=== PATIENT | male | born 1940 | race Caucasian/White ===

== ENCOUNTER 2018-08-20 07:25 | Emergency (ER) | payer MEDICARE ==
[2018-08-20] MEDS ORDERED: methylPREDNISolone 125 MG* 2 ML VIAL IV ONE (08:18)
[2018-08-20] MEDS ORDERED: diPHENhydraMINE IV* 50 MG/ML 1 ml VIAL (BENADRYL) IV ONE (08:18)
[2018-08-20] MEDS ORDERED: Famotidine IV* 10 MG/ML 2 ML (20 mg) IV SLOW PU ONE (08:19)
[2018-08-20] MEDS ORDERED: NS 0.9% 1000 ML** 1,000 ML IV SCH (08:30)
--- NOTE | 2018-08-20 08:32 | UC ---
General HPI - HPI Summary HPI Summary: WOKE UP THIS MORNING WITH A SORE/SWOLLEN TONGUE. STATES IT LOOKS DISCOLORED. STATES HIS RIGHT UPPER EYELID IS ALSO SLIGHTLY SWOLLEN AND HE HAS A RASH ON HIS CHEST. DENIES ANY RESPIRATORY DIFFICULTY. NO FEVER. NO NAUSEA/VOMITING. NO KNOWN ALLERGIES. SPEECH IS SLIGHTLY MUFFLED DUE TO THE SIZE OF HIS TONGUE. STATES HE TOOK 200 MG OF DOXYCYCLINE LAST NIGHT FOR TICK BITE. HIS ALSO STATES THAT SHE PUT BRAND-NEW, OUT OF THE PACKAGE SHEETS ON THE BED LAST NIGHT. NO OTHER NEW EXPOSURES HE CAN IDENTIFY. - History of Current Complaint Chief Complaint: UCRespiratory Stated Complaint: MOUTH COMPLAINT Time Seen by Provider: 08/20/18 07:43 Hx Obtained From: Patient Onset/Duration: Sudden Onset, Lasting Hours, Still Present Timing: Constant Onset Severity: Moderate Current Severity: Moderate Pain Intensity: 6 Associated Signs & Symptoms: Positive: Recent Medication Changes. Negative: Abdominal Pain, Confusion, Cough, Chest Pain, Dizziness, Fever, Headache, Nausea , SOB, Trauma, Vomiting - Allergy/Home Medications Allergies/Adverse Reactions: Allergies Allergy/AdvReac Type Severity Reaction Status Date / Time No Known Allergies Allergy Verified 08/20/18 07:41 Home Medications: Home Medications Diclofenac 1% GEL (NF) [Voltaren 1% GEL (NF)] 1 applic TOPICAL DAILY PRN [History Confirmed 08/20/18] Ibuprofen 600 mg PO ONCE PRN 08/20/18 [History Confirmed 08/20/18] PMH/Surg Hx/FS Hx/Imm Hx Endocrine History: Dyslipidemia Psychological History: Depression - Surgical History Surgical History: Yes Surgery Procedure, Year, and Place: APPENDIX A CHILD. TONSILS A CHILD - Family History Known Family History: Positive: Non-Contributory - Social History Alcohol Use: Rare Substance Use Type: None Smoking Status (MU): Never Smoked Tobacco Review of Systems All Other Systems Reviewed And Are Negative: Yes Constitutional: Positive: Negative Eyes: Positive: Other - RIGHT EYELID EDEMA. Negative: Blurred Vision, Eye Redness ENT: Positive: Other - TONGUE/LIP SWELLING Respiratory: Positive: Negative Cardiovascular: Positive: Negative Gastrointestinal: Positive: Negative Musculoskeletal: Positive: Negative Neurological: Positive: Negative Physical Exam Triage Information Reviewed: Yes Appearance: Well-Appearing, No Pain Distress, Well-Nourished Vital Signs: Initial Vital Signs Temp 97.7 F 08/20/18 07:33 Pulse 90 08/20/18 07:33 Resp 18 08/20/18 07:33 BP 155/95 08/20/18 07:33 Pulse Ox 96 08/20/18 07:33 Vital Signs Reviewed: Yes Eyes: Positive: Conjunctiva Clear, Other: - RIGHT UPPER EYELID EDEMA. LEYLA OCASIO. ENT: Positive: Hearing grossly normal, Pharynx normal, Uvula midline - NO EDEMA , Other - TONGUE IS SIGNIFICANTLY SWOLLEN AND ECCHYMOTIC. SLIGHT EDEMA CORNER OF MOUTH RIGHT SIDE. SPEECH IS MUFFLED DUE TO ENLARGED TONGUE. Negative: Pharyngeal erythema, Nasal congestion Neck: Positive: Supple, Nontender, No Lymphadenopathy Respiratory Exam: Normal Cardiovascular Exam: Normal Abdomen Description: Positive: Soft Musculoskeletal: Positive: No Edema Neurological: Positive: Alert, Muscle Tone Normal Psychological: Positive: Normal Response To Family, Age Appropriate Behavior Skin: Negative: Rashes Re-Evaluation - Re-Evaluation First Eval Re-Evaluation Time: 10:30 - TONGUE FEELS BETTER AFTER 125MG SOLUMEDROL, 40MG PEPCID AND 50MG DIPHENHYDRAMINE Change: Improved Second Eval Re-Evaluation Time: 11:35 - CONTINUED IMPROVEMENT IN TONGUE SWELLING. SPEECH IS CLEARER. READY FOR D/C Change: Improved Course/Dx - Course Course Of Treatment: PATIENT HAD IMPROVEMENT IN TONGUE SWELLING AND SUBSEQUENT IMPROVEMENT IN CLARITY OF SPEECH AFTER 1 L NORMAL SALINE, 125 MG SOLU-MEDROL, 50 MG BENADRYL, 40 MG PEPCID HERE IN THE UC. HE DOES HAVE SOME RIGHT UPPER EYELID EDEMA AND SLIGHT SWELLING IN THE RIGHT CORNER OF HIS MOUTH THAT HAS BEEN STABLE FOR THE DURATION OF HIS ENCOUNTER. THE RASH ON HIS CHEST IS UNCHANGED. GIVEN HIS OVERALL IMPROVEMENT IN SYMPTOMS HE IS MEDICALLY STABLE TO BE DISCHARGED HOME. WILL CONTINUE STEROIDS FOR THE NEXT 4 DAYS. HAVE ALSO ADVISED HE TAKE 50 MG BENADRYL AT NIGHT AND AN OTC FIRST-GENERATION ANTIHISTAMINE IN THE MORNING SUCH CLARITIN, ZYRTEC OR BEBE. HE'LL GO TO THE ER WITHOUT FAIL IF HE HAS ANY WORSENING OF HIS SYMPTOMS OR RESPIRATORY INVOLVEMENT. HAVE ADVISED HE STRIP THE BED AND WASH THE NEW SHEETS. 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 - Diagnoses Provider Diagnosis: Allergic reaction, Angioedema Discharge - Sign-Out/Discharge Documenting (check all that apply): Patient Departure All imaging exams completed and their final reports reviewed: No Studies - Discharge Plan Condition: Stable Disposition: HOME Prescriptions: predniSONE TAB* [Deltasone TAB*] 50 mg PO DAILY #4 tab Patient Education Materials: Angioedema (ED), General Allergic Reaction (ED) Referrals: Gautam Mclean MD [Primary Care Provider] - If Needed Additional Instructions: YOUR CONSTELLATION OF SYMPTOMS IS SUGGESTIVE OF AN ALLERGIC REACTION. UNCLEAR TO WHAT YOU ARE REACTING. CONSIDER DOXYCYCLINE VERSUS AN ALLERGEN IN THE NEW BED SHEETS THAT YOU USED. YOU FELT IMPROVED AFTER 125 MG SOLU-MEDROL, 50 MG BENADRYL, 40 MG PEPCID AND 1L FLUIDS HERE IN THE UC WITH IMPROVEMENT IN THE SWELLING OF YOUR TONGUE. CONTINUE PREDNISONE FOR THE NEXT 4 DAYS. AVOID HEAT AND HOT WATER THIS CAN WORSEN INFLAMMATORY SYMPTOMS. TAKE OTC ANTIHISTAMINE DAILY (CLARITIN (LORATADINE), ZYRTEC (CETIRIZINE) OR BEBE (FEXOFENADINE) IN THE MORNING, 50MG BENADRYL AT NIGHT) KEEP COOL, CLEAN AND DRY GO TO THE ED WITHOUT FAIL IF YOU DEVELOP ANY RESPIRATORY INVOLVEMENT, INCREASED TONGUE/LIP SWELLING, FEVER, NAUSEA/VOMITING OR ANY OTHER CONCERNING SYMPTOMS. IF YOU HAVE RECURRENT SYMPTOMS CONSIDER EVAL BY AN ASSEMBLER CARDS AND ANNOUNCEMENTS. [facility] Address: [facility] [address], [place] [address] [facility] [address] [place], [place] [address] [place], [place] [address] - Billing Disposition and Condition Condition: STABLE Disposition: Home
[2018-08-20 12:15] VITALS: BP 163/98
== END 2018-08-20 12:07 | disposition home or self-care (01) ==
LOC: UCEAST 07:25
DX: T78.3XXA Angioneurotic edema, initial encounter (principal); T78.40XA Allergy, unspecified, initial encounter; X58.XXXA Exposure to other specified factors, initial encounter
CPT/HCPCS: 96360; 96375; 96376; 99212; G0463; J1200; J2930

== ENCOUNTER 2019-01-06 18:28 | Observation (INO) | payer MEDICARE ==
[2019-01-06] MEDS ORDERED: NS 0.9% 1000 ML** 1,000 ML IV ONE ×2 (18:36→20:04)
--- NOTE | 2019-01-06 18:53 | ED ---
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 notes facial, arm, and leg numbness, mild facial weakness. no h/a, visual disturbance, slurred speech, facial droop, AMS, n/v, CP/SOB. no h/o CAD/DM/HTN. no h/o similar symptoms. remote h/o smoking. - History of Current Complaint Chief Complaint: EDNeurologicalDeficit Stated Complaint: NUMBNESS IN L ARM PER PT Time Seen by Provider: 01/06/19 18:41 Pain Intensity: 0 - Allergy/Home Medications Allergies/Adverse Reactions: Allergies Allergy/AdvReac Type Severity Reaction Status Date / Time No Known Allergies Allergy Verified 09/16/18 07:39 PMH/Surg Hx/FS Hx/Imm Hx Cardiovascular History: Denies: Hx Pacemaker/ICD Sensory History: Reports: Hx Hearing Aid Psychiatric History: Denies: Hx Panic Disorder - Surgical History Surgery Procedure, Year, and Place: APPENDIX A CHILD. TONSILS A CHILD Infectious Disease History: No Infectious Disease History: Reports: History Other Infectious Disease - herpes Denies: Traveled Outside the [place] in Last 30 Days - Family History Known Family History: Positive: Non-Contributory - Social History Alcohol Use: Rare Substance Use Type: Reports: None Smoking Status (MU): Never Smoked Tobacco Review of Systems Constitutional: Negative Negative: Fever Eyes: Negative ENT: Negative Cardiovascular: Negative Respiratory: Negative Gastrointestinal: Negative Skin: Negative Neurological: Other Negative: Headache Psychological: Normal Positive: Anxious All Other Systems Reviewed And Are Negative: Yes Physical Exam Triage Information Reviewed: Yes Vital Signs On Initial Exam: Initial Vitals Temp Pulse Resp BP Pulse Ox 97.3 F 83 16 00/00 100 01/06/19 18:32 01/06/19 18:32 01/06/19 18:32 01/06/19 18:32 01/06/19 18:32 Vital Signs Reviewed: Yes Appearance: Positive: Well-Appearing Skin: Positive: Warm Head/Face: Positive: Normal Head/Face Inspection ENT: Positive: Normal ENT inspection Neck: Positive: Supple. Negative: Nuchal Rigidity Respiratory/Lung Sounds: Positive: Clear to Auscultation Cardiovascular: Positive: Normal Abdomen Description: Positive: Nontender Musculoskeletal: Positive: Normal Neurological: Positive: Other - see NIHSS Psychiatric: Positive: Normal AVPU Assessment: Alert Procedures - Sedation Patient Received Moderate/Deep Sedation with Procedure: No Diagnostics - Vital Signs Vital Signs Temp Pulse Resp BP Pulse Ox 01/06/19 18:32 97.3 F 83 16 100 - Laboratory Result Diagrams: 01/07/19 05:26 01/07/19 05:26 Lab Statement: Any lab studies that have been ordered have been reviewed, and results considered in the medical decision making process. NIH Scale - NIH Scale Level of Consciousness: Alert/Keenly Responsive Ask Patient the Month and His/Her Age: Both Correct Ask Pt to Open/Close Eyes and Magnetometer Operator/Release Non-Paretic Hand: Both Correctly Best Gaze (Only Horizontal Eye Movement): Normal Visual Field Testing: No Visual Loss Facial Paresis-Pt to Smile & Close Eyes or Grimace Symmetry: Normal/Symmetrical Motor Function - Right Arm: No Drift-Holds 10 Seconds Motor Function - Left Arm: No Drift-Holds 10 Seconds Motor Function - Right Leg: No Drift-Holds 10 Seconds Motor Function - Left Leg: No Drift-Holds 10 Seconds Limb Ataxia-Must be out of Proportion to Weakness Present: Absent Sensory (Use Pinprick to Test Arms/Legs/Trunk/Face): Pinprick Less on Affected Best Language (Describe Picture, Name Items): No Aphasia Dysarthria (Read Several Words): Normal Extinction and Inattention: No Abnormality Total Score: 1 Course/Dx - Course Course Of Treatment: d/w teleneurology in [place] at 1855. will set up for consultation and call back shortly. - Diagnoses Provider Diagnoses: Paresthesia Discharge ED - Sign-Out/Discharge Documenting (check all that apply): Sign-Out Patient Signing out patient TO: Pedrito Mata - 1898 - Discharge Plan Condition: Stable Disposition: ADMITTED TO [facility] - Billing Disposition and Condition Condition: STABLE Disposition: Admitted to [facility] - Attestation Statements Document Initiated by Leland: No
[2019-01-06 19:08] LABS: Hematocrit 47 % (42-52); Hemoglobin 16.3 g/dL (14.0-18.0); Mean Corpuscular HGB Conc 35 g/dL (31-36); Mean Corpuscular Hemoglobin 31 pg (27-31); Mean Corpuscular Volume 89 fL (80-94); Mean Platelet Volume 8.7 fL (7.4-10.4); Platelet Count 262 10^3/uL (150-450); Red Blood Count 5.25 10^6 /uL (4.18-5.48); Red Cell Distribution Width 13 % (10-15); White Blood Count 16.4 10^3/uL (3.5-10.8)
[2019-01-06 19:19] LABS: INR 1.03 (0.82-1.09)
[2019-01-06 19:24] LABS: ALT 17 U/L (7-52); Albumin 4.2 g/dL (3.2-5.2); Albumin/Globulin Ratio 1.9 (1-3); Alkaline Phosphatase 61 U/L (34-104); BUN/Creatinine Ratio 16.5 (8-20); Blood Urea Nitrogen 18 mg/dL (6-24); CO2 Carbon Dioxide 25 mmol/L (22-32); Calcium 9.3 mg/dL (8.6-10.3); Chloride 104 mmol/L (101-111); Cholesterol 249 mg/dL; EGFR African American 79.4 (>60); EGFR Non-African American 65.6 (>60); Globulin 2.2 g/dL (2-4); Glucose 142 mg/dL (70-100); HDL Cholesterol 45.8 mg/dL; Sodium 137 mmol/L (135-145); Total Protein 6.4 g/dL (6.4-8.9); Triglycerides 455 mg/dL
[2019-01-06 19:28] LABS: Troponin I 0.01 ng/mL (<0.04)
[2019-01-06 19:29] LABS: Anion Gap 8 mmol/L (2-11)
[2019-01-06 19:39] LABS: LDL Cholesterol Direct 183 mg/dL
[2019-01-06] MEDS ORDERED: Aspirin TAB* 325 MG PO ONE (19:48)
[2019-01-06] MEDS ORDERED: Iohexol 350* (CONTRAST) 500 ML MDV IV ONE (19:52)
--- NOTE | 2019-01-06 19:57 | ED ---
Progress - Progress Note Progress Note: Pt was pending a neurology assessment by Dr. Chu from [facility] [place]. EKG at 19:56 shows 84 BPM, normal sinus rhythm with T wave inversions in lead III and aVF. T- wave inversions are new from 2009. At 19:48, Dr. Chu states that on assessment, pt has ataxia in left LE with the same intensity of symptoms. Recommends against tPA for minor neurological deficits; possible minor stroke. Recommends admission to [facility] to determine if stroke occurred and CTA of head and neck, and cardiac studies. Recommends pt be given aspirin 125 mg. At 19:52, Dr. Pichardo agrees to accept the pt to [facility] with a diagnosis of paresthesia. Sm tick noted to L flank, removed. Area of erythema around tick bite. patient allergic to doxy. hospitalist aware - EKG/XRAY/CT EKG: NSR - 84 BPM Comments: EKG at 19:56 shows 84 BPM, normal sinus rhythm with T wave inversions in le Course/Dx - Course Course Of Treatment: d/w teleneurology in [place] at 1855. will set up for consultation and call back shortly. - Diagnoses Provider Diagnoses: Paresthesia Discharge ED - Sign-Out/Discharge Documenting (check all that apply): Patient Departure - Admit - Discharge Plan Condition: Stable Disposition: ADMITTED TO [facility] Referrals: Gautam Mclean MD [Primary Care Provider] - - Billing Disposition and Condition Condition: STABLE Disposition: Admitted to [facility] - Attestation Statements Document Initiated by Leland: Yes Documenting Scribe: Megan Weinstein Provider For Whom Leland is Documenting (Include Credential): Pedrito Mata MD Scribe Attestation: Megan Peterson, scribed for Pedrito Mata MD on 01/06/19 at 2043. Scribe Documentation Reviewed: Yes Provider Attestation: The documentation as recorded by the Megan griffin accurately reflects the service I personally performed and the decisions made by , Pedrito Mata MD Status of Scribe Document: Viewed
[2019-01-06 20:06] LABS: ABS Basophils 0.1 10^3/ul (0-0.2); ABS Eosinophils 0.3 10^3/ul (0-0.6); ABS Lymphocytes 9.9 10^3/ul (1.0-4.8); ABS Monocytes 0.8 10^3/ul (0-0.8); ABS Neutrophils 5.3 10^3/ul (1.5-7.7); ABS Nucleated RBC 0.1 10^3/ul; Nucleated Red Blood Cells % 0.4
[2019-01-06] MEDS ORDERED: Clopidogrel TAB* 75 MG PO ONE (20:33)
[2019-01-06] MEDS ORDERED: Acetaminophen TAB* 325 MG PO PRN (20:34)
[2019-01-06] MEDS ORDERED: Atorvastatin* 80 MG TAB PO ONE (21:00)
[2019-01-06 21:44] LABS: TSH (Thyroid Stimulating Horm) 1.91 mcIU/mL (0.34-5.60)
[2019-01-06] MEDS ORDERED: hydrALAZINE IV* 20 MG/ML VIAL IV SLOW PU PRN (21:51)
[2019-01-06 22:26] LABS: Troponin I 0.01 ng/mL (<0.04)
--- NOTE | 2019-01-06 22:32 | HP ---
CC: Dr. Mclean * HISTORY AND PHYSICAL: DATE OF ADMISSION: 01/06/19 PROVIDER: Morris Cortes NP PRIMARY CARE PROVIDER: Dr. Mclean. ATTENDING PHYSICIAN WHILE IN THE HOSPITAL: Dr. Emeka Pichardo * (dictated by Morris Cortes NP). CHIEF COMPLAINT: Left-sided numbness, facial numbness, left arm numbness, left leg numbness. HISTORY OF PRESENT ILLNESS: Mr. Shook is a 78-year-old male with past medical history significant for hyperlipidemia for which he does not take any medications, who presented to the emergency room with complaints of sudden of left-sided facial, arm, and leg numbness that started at 6 p.m. The patient reports left-sided facial, hand, and arm numbness and slight left leg numbness that started at 6 p.m. this evening. He denied any slurred speech. Denied any weakness on the left side. Denied any dizziness or visual complaints. Due to these symptoms, the patient was brought to the emergency room for further evaluation. While in the emergency room, the patient was hypertensive with blood pressure of 177/110. Due to his left-sided numbness, Hospital Medicine was asked to evaluate the patient for admission. The patient denied any fevers, unintended weight loss, chest pain or edema, cough, hemoptysis, shortness of breath. Denies any nausea, vomiting, diarrhea, abdominal pain, hematuria, dysuria. He does report sensory deficit on the left arm, hand, left facial, and left leg. He does report his symptoms have improved since he has been in the emergency room, but continues to have some residual numbness in his left hand, forearm, and slight numbness in his face. He denies any visual complaints, difficulty swallowing, difficulty with his speech. Denies any arthralgias, myalgias, rashes, lesions, or psychosis or anxiety. PAST MEDICAL HISTORY: Significant for history of hyperlipidemia for which he does not take medications. PAST SURGICAL HISTORY: Appendectomy, tonsillectomy. HOME MEDICATIONS: Include: 1. Alpha-GPC supplement. 2. Calcium. 3. Magnesium. 4. Vitamin D. ALLERGIES: DOXYCYCLINE, causes facial swelling and tongue swelling. FAMILY HISTORY: Noncontributory. SOCIAL HISTORY: The patient reports he quit smoking 47 years ago. Prior to that, he smoked 10 to 15 years about a pack a day. Denies any alcohol or illicit drug use. He is . Surrogate decision maker in the event he is unable to make his own decision is his . He is a full code. REVIEW OF SYSTEMS: A 14-point review of systems was completed. All pertinent positives are mentioned in the HPI, otherwise were negative. PHYSICAL EXAMINATION GENERAL: At this time, Mr. Shook is resting on the stretcher in the emergency room. He is in no acute distress. Speech is clear. VITAL SIGNS: Blood pressure 177/110, heart rate is 80, respirations are 18, O2 saturation 98% on room air, temperature was 97.3. HEENT: Head is atraumatic, normocephalic. Eyes: EOMs are intact. Sclerae anicteric and not pale. Oral mucosa appeared to be moist. NECK: Supple. LUNGS: Clear to auscultation bilaterally. No wheezes, rales, or rhonchi. CARDIAC: S1, S2. Regular rate and rhythm. No murmurs, rubs, or gallops. ABDOMEN: Soft and nontender. Bowel sounds are present x4. EXTREMITIES: He is able to move all 4 extremities. There is no clubbing or cyanosis. Pedal pulses are +2 bilaterally. NEUROLOGIC: He is awake, alert, and oriented x3. Speech is clear. Thought process is intact. [id number] is intact. Hand news broadcaster are equal. Tongue is midline. Smile is equal. There is no facial asymmetry. Speech is clear. Heel -to- houser is intact. Push-pull is intact. There is no pronator drift. There is no leg drift. He does have decreased sensation in the left face, left arm, and sensation is equal in the lower legs. SKIN: He does have a tick that is intact to his left rib area with surrounding erythema. This was removed by the emergency room. DIAGNOSTIC STUDIES/LAB DATA: WBCs are 16.4, RBCs 5.25, hemoglobin 16.3, platelet count is 263. INR is 1.03, aPTT was 34. Potassium 3.7, sodium 137, chloride 104, carbon dioxide 25, anion gap is 8, BUN 18, creatinine 1.09, glucose is 142, lactic acid was 3.0, calcium 9.3. Total bilirubin 0.40, ASTs not performed, ALTs are 17, alkaline phosphatase 61. Troponin was 0.01. Cholesterol was 249, triglycerides were 455, LDL cholesterol direct is 183, HDL was 45. TSH is currently pending. He had a CT of the brain, radiologist's impression: No acute intracranial abnormality. He had a CTA of the head and neck that showed no acute stenosis, no acute abnormalities. He had an electrocardiogram, which showed sinus rhythm at a rate of 84. MRI of the brain is currently pending. ASSESSMENT AND PLAN: Mr. Shook is a 78-year-old male with past medical history significant for hyperlipidemia, who presented to the emergency room with complaints of left facial arm and leg numbness. He will be admitted for: 1. Left-sided facial arm and leg numbness. We will rule out transient ischemic attack versus cerebrovascular accident. The patient did receive 325 mg of aspirin in the emergency room. I will give him Plavix 75 mg. We will continue him on aspirin 81 mg p.o. daily and Plavix 75 mg p.o. daily. He had a CTA of the head and neck, which was within normal limits. He had CT of the brain that showed no acute intracranial pathology. An MRI of the brain is currently pending. He will be placed on neuro checks q.2 hours. I will repeat a lipid profile in the a.m. I will add on vitamin B12 and TSH, hemoglobin A1c. We will allow for permissive hypertension and will treat for systolic blood pressure greater than 200. I will also give him atorvastatin 80 mg for an LDL of 183. We will get transtoracic Echocardigram with bubble study. Dr. Best from Neurology has been consulted and will see the patient tomorrow. I will also get PT and OT. The patient has no slurred speech or difficulty with swallowing, so speech evaluation is not needed. He will have a bedside dysphagia screen. 2. Tick bite. The patient did have an embedded tick noted to his left lower rib area that was removed in the emergency room. The patient does report an allergy to DOXYCYCLINE with facial swelling and tongue swelling. According to UpToDate it is recommended not to treat prophylactically with any other antibiotic other than doxycycline, so at this time I will hold off on prophylactic antibiotics for treatment of Lyme disease. 3. Leukocytosis. The patient does have white count of 16,000. He does not have a fever. He does not appear septic. He has no clear source of underlying infection. We will repeat a CBC in the a.m. At this time, I am going to hold off on antibiotic as he does not have a clear source of underlying infection at this time. 4. Diet. He can have low-sodium diet. 5. Code status. He is a full code. 6. DVT prophylaxis. I will place him on heparin subcu. TIME SPENT: Time spent on this admission was 60 minutes, greater than half that time was spent at the bedside reviewing events leading thus far to his hospitalization, performing physical exam, and reviewing my plan of care. I have discussed this with my attending, Dr. Emeka Pichardo; he is in agreement with my plan. MORRIS CORTES, CLEARANCE REP [id number]/[facility] #: [id number] [email or web address]
[2019-01-06] MEDS: Heparin VIAL(*) 5000 UNITS/ML VIAL (FIVE THOUSAND) SUBCUT SCH (23:29)
[2019-01-06 23:35] LABS: Urine Appearance Clear; Urine Bilirubin Negative (Negative); Urine Blood Negative (Negative); Urine Color Straw; Urine Glucose Negative (Negative); Urine Ketones Negative (Negative); Urine Nitrite Negative (Negative); Urine Protein Negative (Negative); Urine Urobilinogen Negative (Negative)
[2019-01-07 00:07] LABS: Potassium Redraw 3.9 mmol/L (3.5-5.0)
[2019-01-07 05:54] LABS: Hematocrit 43 % (42-52); Hemoglobin 14.6 g/dL (14.0-18.0); Mean Corpuscular HGB Conc 34 g/dL (31-36); Mean Corpuscular Hemoglobin 31 pg (27-31); Mean Corpuscular Volume 89 fL (80-94); Mean Platelet Volume 8.7 fL (7.4-10.4); Platelet Count 225 10^3/uL (150-450); Red Cell Distribution Width 13 % (10-15); White Blood Count 17.2 10^3/uL (3.5-10.8)
[2019-01-07 06:09] LABS: BUN/Creatinine Ratio 14.4 (8-20); Calcium 8.6 mg/dL (8.6-10.3); EGFR African American 77.7 (>60); EGFR Non-African American 64.2 (>60); HDL Cholesterol 42.9 mg/dL; Potassium 3.8 mmol/L (3.5-5.0)
[2019-01-07 06:14] LABS: ABS Basophils 0.1 10^3/ul (0-0.2); ABS Eosinophils 0.4 10^3/ul (0-0.6); ABS Lymphocytes 11.4 10^3/ul (1.0-4.8); ABS Monocytes 0.9 10^3/ul (0-0.8); ABS Neutrophils 4.5 10^3/ul (1.5-7.7); Eosinophil % 2.4 %; Nucleated Red Blood Cells % 0.2
[2019-01-07] MEDS: Heparin VIAL(*) 5000 UNITS/ML VIAL (FIVE THOUSAND) SUBCUT SCH ×2 (06:39→15:10)
[2019-01-07] MEDS ORDERED: Aspirin 81 mg CHEW TAB* 81 MG TAB.CHEW PO SCH (09:00)
[2019-01-07] MEDS ORDERED: Clopidogrel TAB* 75 MG PO SCH (09:00)
--- NOTE | 2019-01-07 14:31 | ECHO ---
*[facility]* [place] [address] Fax #: [phone] Transthoracic Echocardiogram Patient: Brayden Shook : 1940 Study Date: 01/07/2019 Age: 78 Gender: M HR: 77 bpm Height: 68 in /172.7 cm BSA: 2.01 m^2 Weight: 192.6 lb /87.5 kg BMI: 29.3 kg/m^2 *Zoo Keeper: * Megan Lo [facility] *Referring Physician: * Ambar Cortes *Reading Physician: * Sam Hernandez MD Indications: TIA. History: Risk factors: Dyslipidemia. Conclusions Summary: - Left ventricle: The cavity size is normal. Wall thickness is mildly increased. Systolic function is normal. The estimated ejection fraction is 55-60%. Doppler parameters are consistent with abnormal left ventricular relaxation (grade 1 diastolic dysfunction). - Regional wall motion abnormality: Akinesis of the basal inferior myocardium. Consider normal variant versus focal infarct. - Right ventricle: Systolic function is low normal. - Atrial septum: A PFO is not demonstrated by color Doppler or agitated saline contrast. - Mitral valve: There is trace regurgitation. - Aortic valve: The valve is trileaflet. The leaflets are mildly thickened. - Tricuspid valve: There is trace regurgitation. Study data: Transthoracic echocardiogram. Procedure: Transthoracic echocardiography was performed. Image quality was good. A bubble study was performed. Complete 2D, spectral Doppler, and color flow Doppler. Location: Bedside. Patient status: Inpatient. Patient room number: 450 01. No prior study is available for comparison. Rhythm: Normal sinus rhythm. Findings Left ventricle: The cavity size is normal. Wall thickness is mildly increased. Systolic function is normal. The estimated ejection fraction is 55-60%. Regional wall motion abnormalities: Akinesis of the basal inferior myocardium. Consider normal variant versus focal infarct. Doppler parameters are consistent with abnormal left ventricular relaxation (grade 1 diastolic dysfunction). Right ventricle: The cavity size is normal. Systolic function is low normal. Left atrium: The atrium is normal in size. Right atrium: The atrium is normal in size. Atrial septum: A PFO is not demonstrated by color Doppler or agitated saline contrast. Mitral valve: The Mitral valve annulus appears calcified. The leaflets are normal thickness. There is no evidence of stenosis. There is trace regurgitation. Aortic valve: The valve is trileaflet. The leaflets are mildly thickened. Focal thickening involving the noncoronary cusp, consistent with sclerosis. There is no evidence of stenosis. There is no significant regurgitation. Tricuspid valve: The leaflets are normal thickness. There is no evidence of stenosis. There is trace regurgitation. Pulmonic valve: The leaflets are normal thickness. There is no evidence of stenosis. There is trace regurgitation. Aorta: The aortic root appears normal. Pericardium: There is no significant pericardial effusion. Pulmonary arteries: Not well visualized. Systolic pressure can not be accurately estimated. Systemic veins: Inferior vena cava: The vessel is normal in size. There is (>= 50%) respiratory change in the IVC dimension. Measurements Left ventricle Value Ref Aortic valve Value Ref DUTCH, LAX 4.3 cm 4.2 - 5.8 Abilio diam, ED 2.5 cm ---- ESD, LAX 2.7 cm 2.5 - 4.0 Peak v, S 1.18 m/sec ---- FS, LAX 38 % 25 - 43 VTI, S 23.7 cm ---- PW, ED, LAX (H) 1.2 cm 0.6 - 1.0 Mean grad, S 4.0 mm Hg ---- EF 68 % 52 - 72 Peak grad, S 6.0 mm Hg ---- E', lat abilio, TDI (L) 8.6 cm/sec >=10.0 E/e', lat abilio, 10 Mitral valve Value Ref TDI Peak E 0.82 m/sec ---- E', med abilio, TDI (L) 5.2 cm/sec >=7.0 Peak A 0.79 m/sec ---- E/e', med abilio, 16 Decel time 208 ms ---- TDI Peak grad, D 2.7 mm Hg ---- E', avg, TDI 6.9 cm/sec Peak E/A ratio 1 ---- E/e', avg, TDI 12 <=14 Pulmonic valve Value Ref LVOT Value Ref Peak v, S 0.87 m/sec ---- Peak lyly, S 0.72 m/sec Peak grad, S 3.0 mm Hg ---- Mean grad, S 1 mm Hg Aortic root Value Ref Ventricular septum Value Ref Root diam 3.3 cm <4.1 IVS, ED (H) 1.3 cm 0.6 - 1.0 Ascending aorta Value Ref Right ventricle Value Ref AAo AP diam, S 3.4 cm ---- DUTCH, LAX 3.0 cm DUTCH minor ax, A4C 2.7 cm 1.9 - 3.5 Decending aorta Value Ref mid Diane peak lyly 0.43 m/sec ---- Left atrium Value Ref Inferior vena cava Value Ref AP dim, ES 3.90 cm 3.00 - Diam 1.9 cm ---- 4.00 ML dim, A4C 3.3 cm SI dim, A4C 5.4 cm Vol/bsa, ES, A/L 23 ml/m^2 16 - 34 Right atrium Value Ref SI dim, ES 5.1 cm 3.4 - 5.3 ML dim, ES, A4C 4.3 cm 2.6 - 4.4 Estimated RAP 8 mm Hg Legend: (L) and (H) sena values outside specified reference range. Prepared and electronically signed by Sam Hernandez MD 01/07/2019 14:30
[2019-01-07 15:21] VITALS: BP 169/94
--- NOTE | 2019-01-07 16:14 | CONS ---
CONSULTATION REPORT: DATE OF CONSULT: 01/07/19 PATIENT OF: Dr. Mclean and Ambar Cortes NP. HISTORY OF PRESENT ILLNESS: This is a 78-year-old right-handed man whom I am asked to evaluate for new onset of sudden left facial, left arm, and left leg numbness beginning at about 6 p.m. These symptoms have cleared other than some left hand numbness to touch. There was no weakness, no slurred speech, no headache. On exam, he had some left mild dysmetria but no other symptoms. He has had no prior stroke. He has a history of hyperlipidemia, he was on Lipitor in the past but not currently. He has had some borderline hypertension , which he has not been treated for. He has had a history of sleep apnea with nasal CPAP but not recently. He is status post appendectomy and tonsillectomy. MEDICINES AT HOME: Include: 1. Vitamin D. 2. Magnesium. 3. Calcium. 4. Alpha-GPC supplement. ALLERGIES: He is allergic to DOXYCYCLINE. FAMILY HISTORY: Noncontributory. History of stroke. SOCIAL HISTORY: He quit smoking 47 years ago and had smoked for 10 to 15 years about a pack a day, does not drink or use drugs. REVIEW OF SYSTEMS: Negative in all 14 spheres other than in the HPI PHYSICAL EXAMINATION: On exam, temperature 97.9, pulse 78, respirations 18, blood pressure 148/91. He was alert and oriented with normal speech and comprehension. Cranial nerves II through XII intact. Fundi were benign. Motor exam revealed normal tone, strength, coordination, and gait. Negative pronator drift. [id number] was intact. Sensation intact to light touch other than slight decrease in his left hand. Chest: Clear. Cardiovascular: Regular rate and rhythm. Abdomen: Soft with positive bowel sounds. DIAGNOSTIC STUDIES/LAB DATA: I reviewed his MRI scan, which to my eye showed a small right either posterior capsule or basal ganglia acute infarct. This was not read by the radiologist, and I called the neuroradiologist who agrees with me that most likely this is a small acute lacunar infarct. His CT was normal. His CTA did not show any significant occlusion or stenosis. Labs include white count of 17.2, rest of the CBC normal although he had 26% reactive lymphs. He had normal INR and PTT. He had normal CMP, B12, and TSH, but his LDL was 136. UA was negative. Lyme titer was negative. ASSESSMENT AND PLAN: Mr. Shook had left hemisensory deficits yesterday which most likely is secondary to small vessel ischemic disease and indeed on his MRI scan he has what appears to be a small lacunar infarct, this most likely is due to hardening of his small blood vessels and I discussed in detail how he should treat his risk factors. He should be on aspirin and Plavix for a month and then just aspirin alone. After that he needs his cholesterol treated to a target of below 70. It is unclear whether he is hypertensive, but this needs to be followed and treated if present. He will need followup with his primary for that. I discussed with him that he is mildly overweight and every 10 pounds he loses that is appropriate, he would reduce his cardiovascular risk factors and decrease his high blood pressure if it exists and also would help the sleep apnea. I discussed the sleep apnea is also a cardiovascular risk factor and increases the risk of stroke, so he is going to readdress his sleep apnea issues. Lastly, I discussed that the pattern of his stroke is unlikely to be due to a cardiovascular source, so if his echo is negative, it is an option to monitor further for atrial fibrillation, but even if we found atrial fibrillation, it would be unclear whether it was the cause of his stroke. I think it would be less likely, so it would be unclear whether he would be needed to be treated with anticoagulation. After discussion with him, we are not going to pursue further cardiac workup like that at this time. Thank you for sharing his case. [id number]/[facility] #: [id number] BEAN
[2019-01-07] MEDS ORDERED: Atorvastatin* 80 MG TAB PO SCH (17:00)
--- NOTE | 2019-01-08 00:44 | DS ---
CC: Dr. Gautam Mclean; Dr. Satish Best * DISCHARGE SUMMARY: DATE OF ADMISSION: 01/06/19 DATE OF DISCHARGE: 01/07/19 PRIMARY CARE PROVIDER: Dr. Gautam Mclean. ATTENDING PHYSICIAN: Dr. Irma Egan * (dictated by Saundra Lopez NP). PRIMARY DIAGNOSES: 1. Acute lacunar infarct. 2. Hyperlipidemia. 3. Hypertension. SECONDARY DIAGNOSIS: Obstructive sleep apnea. STUDIES WHILE IN THE HOSPITAL: 1. Brain CT on 01/06/19, reads as no acute intracranial abnormality. 2. Chest x-ray on 01/06/19, reads as no evidence of active cardiopulmonary disease. 3. EKG on 01/06/19, shows normal sinus rhythm at a rate of 84. No ischemic changes. 4. Head CTA on 01/06/19, reads as no acute abnormality. 5. Brain MRI on 01/06/19, reads as no acute intracranial abnormality. Paranasal sinus mucosal disease described in the body of the report. 6. Transthoracic echocardiogram on 01/07/19, reads as the left ventricular cavity size is normal. Wall thickness is mildly increased. Systolic function is normal. The estimated ejection fraction is 55% to 60%. Doppler parameters are consistent with abnormal left ventricular relaxation, (grade 1 diastolic dysfunction), akinesis of the basal inferior myocardium, consider normal variant versus focal infarct. Right ventricular systolic function is low normal. A PFO was not demonstrated by color Doppler or agitated saline contrast. There is trace mitral regurgitation. The aortic valve is trileaflet. The leaflets are mildly thickened. There is trace tricuspid regurgitation. HISTORY OF PRESENT ILLNESS AND HOSPITAL COURSE: Mr. Shook is a 78-year-old male with past medical history of hyperlipidemia, which was currently untreated , who presented to the emergency room on 01/06/19 with complaints of left-sided numbness. Please see the history and physical by Ambar Cortes NP, for complete summary of the events leading up to this hospitalization. In short, the patient reported some nausea, lest-sided facial, arm, and leg numbness starting at 6 p.m. that evening. Out of concern, he presented to the emergency room. In the emergency room, he was noted to be hypertensive, systolics in 200s and diastolics into the 130s. Because of the need to rule out TIA versus CVA, he was admitted by the hospitalist service. The patient had an uneventful night and symptoms have improved; however, the patient still reports some sensory deficits on the left side. On exam, there is no sensation abnormality, though the patient does report that his left side generally feels "different." He had additional imaging today as noted above. He was seen in consultation by Dr. Best from Neurology. Dr. Best did review the MRI with a radiologist and at that point we determined that there was a small right either a posterior capsule or basal ganglia acute infarct that was not noted by the original radiologist. Dr. Best did speak with a neuroradiologist who agreed with the findings of a small acute lacunar infarct. Dr. Best recommended treating the patient with aspirin and Plavix for a total of 30 days and dropping to just aspirin. He recommended treating cholesterol and blood pressure as well as weight loss. The patient is noted to have a history of sleep apnea but does not use a CPAP machine. It has been recommended that the patient readdress this issue. Dr. Best noted that there could be some concern for atrial fibrillation that he discussed with the patient and the patient decided to forego any further cardiac workup. Dr. Best advised that the patient is appropriate for discharge. On exam, he has no focal neurological deficits though he does have some sensory abnormalities as described above. He is alert and oriented x4. His heart has a regular rate and rhythm without murmurs, rubs, or gallops. Lungs are clear to auscultation without rhonchi, wheezes, or rubs. There is no edema. Physical exam is otherwise benign. Mr. Shook is stable for discharge today. Vital signs are as follows: Temp 97.6, heart rate 87, respiratory rate 16, oxygen saturation 92% on room air, blood pressure 116/94. DISCHARGE MEDICATIONS: New medications: 1. Amlodipine 5 mg p.o. daily. 2. Aspirin 81 mg p.o. daily. 3. Atorvastatin 80 mg p.o. daily. 4. Plavix 75 mg p.o. daily. Continued medications: 1. Magnesium 1 tab daily. 2. Vitamin D3 one tab daily. DISCHARGE PLAN: Mr. Shook will be discharged home. Activity will be as tolerated. Diet should be heart healthy for further lipid control. Again, the patient will be on dual antiplatelet therapy for a total of 30 days. After 30 days, he can stop the Plavix, though should continue aspirin. He was noted to have an elevated LDL 136, so he has been placed on high dose atorvastatin for treatment of hyperlipidemia. Additionally, the patient has been noted to be consistently hypertensive while here in the hospital, lowest blood pressure readings was overnight while the patient was sleeping at 139/85. So I felt that at this time it is appropriate to start the patient on doses of a single antihypertensive agent. This will need to be readdressed to determine if dosing needs any adjustment. The patient should follow up with his primary care provider and as noted above, it is recommended that the patient readdress his obstructive sleep apnea. This would likely involve a repeat sleep study. He should follow up with his primary care provider in the next 5 to 7 days. He has been advised to return to the emergency room or nearest hospital for any worsening of symptoms, shortness of breath, lightheadedness, dizziness, chest discomfort, high fevers, chills, night sweats, loss of consciousness, or any other worrisome signs or symptoms. DISCHARGE CONDITION: Stable. DISCHARGE DISPOSITION: Home. This is a summarized report of a complex medical history and hospital stay. For further details, please see the entire medical record. TIME SPENT: Approximately 50 minutes was spent on this discharge. SAUNDRA LOPEZ NP [id number]/[facility] #: [id number] BEAN
[2019-01-08 22:18] LABS: Anaplasma phagocytophilum Negative (Negative); B. miyamotoi PCR, B Negative (Negative); Babesia divergens/MO-1 Negative (Negative); Babesia ducani Negative (Negative); Ehrlichia chaffeensis Negative (Negative); Ehrlichia ewingii/canis Negative (Negative); Ehrlichia muris eauclairensis Negative (Negative)
== END 2019-01-07 17:20 | disposition home or self-care (01) ==
LOC: ED 18:28 → MEDTELE 20:34
PROVIDERS: ADMIT Internal Medicine; ATTEND Internal Medicine
DX: I63.81 Other cerebral infarction due to occlusion or stenosis of small artery (principal); E78.5 Hyperlipidemia, unspecified; I10 Essential (primary) hypertension; Z79.899 Other long term (current) drug therapy; R20.2 Paresthesia of skin; F41.9 Anxiety disorder, unspecified; Z87.891 Personal history of nicotine dependence
CPT/HCPCS: 36415; 70450; 70496; 70498; 70551; 71045; 80048; 80053; 80061; 81003; 82607; 83605; 83721; 83735; 84443; 84484; 85025; 85060; 85610; 85730; 86618; 87798; 93005; 93306; 96372; 99285; A9270-GY; G0378; G8978-GP-CH; G8979-GP-CH; G8980-GP-CH; G8987-GO-CH; G8988-GO-CH; J1644; Q9967

== ENCOUNTER 2019-12-10 10:29 | Observation (INO) ==
[2019-12-10] MEDS ORDERED: NS 0.9% 1000 ml BAG 1,000 ML IV ONE (10:58)
[2019-12-10 11:07] LABS: Hematocrit 47 % (42-52); Hemoglobin 16.1 g/dL (14.0-18.0); Mean Corpuscular HGB Conc 34 g/dL (31-36); Mean Corpuscular Hemoglobin 31 pg (27-31); Mean Corpuscular Volume 90 fL (80-94); Mean Platelet Volume 8.4 fL (7.4-10.4); Platelet Count 370 10^3/uL (150-450); Red Blood Count 5.23 10^6 /uL (4.18-5.48); Red Cell Distribution Width 13 % (10-15); White Blood Count 19.8 10^3/uL (3.5-10.8)
[2019-12-10 11:12] LABS: ABS Basophils 0.1 10^3/ul (0-0.2); ABS Eosinophils 0.3 10^3/ul (0-0.6); ABS Lymphocytes 10.9 10^3/ul (1.0-4.8); ABS Monocytes 1.2 10^3/ul (0-0.8); ABS Neutrophils 7.4 10^3/ul (1.5-7.7); Eosinophil % 1.4 %; Lymphocyte % 54.8 %; Nucleated Red Blood Cells % 0.1
[2019-12-10 11:26] LABS: INR 1.12 (0.82-1.09)
[2019-12-10 11:32] LABS: Albumin 4.7 g/dL (3.2-5.2); BUN/Creatinine Ratio 14.7 (8-20); Calcium 9.9 mg/dL (8.6-10.3); EGFR African American 73.7 (>60); EGFR Non-African American 60.9 (>60); Globulin 2.4 g/dL (2-4); Total Bilirubin 0.8 mg/dL (0.2-1.0); Total Protein 7.1 g/dL (6.4-8.9)
[2019-12-10] MEDS ORDERED: Iohexol 350 (CONTRAST) 500 ML MDV IV ONE (11:39)
[2019-12-10 12:10] LABS: TSH Ultra Thyroid Stim Horm 1.84 mcIU/mL (0.34-5.60)
[2019-12-10 12:52] LABS: Magnesium 2.2 mg/dL (1.9-2.7); Potassium 4.5 mmol/L (3.5-5.0)
[2019-12-10] MEDS ORDERED: hydrALAZINE 20 mg/ml 1 ML Vial IV IV SLOW PU PRN (13:41)
[2019-12-10] MEDS ORDERED: Al Hydrox/Mg Hydrox/Simet LIQ 30 ML UDC PO PRN (20:27)
[2019-12-10] MEDS: Heparin 5000 UNITS/ML 1 mL VIAL SUBCUT SCH (20:43)
[2019-12-11 06:49] LABS: HDL Cholesterol 43.5 mg/dL
[2019-12-11] MEDS: Heparin 5000 UNITS/ML 1 mL VIAL SUBCUT SCH (08:02)
[2019-12-11 12:01] VITALS: BP 137/79
[2019-12-12] MEDS ORDERED: Influenza VAC *QUAD* 2020-21* 0.5 ML SYRINGE IM ONE (09:00)
== END 2019-12-11 14:48 | disposition home or self-care (01) ==
LOC: MEDTELE 10:29 → ED 10:29 → MEDTELE 14:36
PROVIDERS: ADMIT Student in an Organized Health Care Education/Training Program; ATTEND Hospitalist